=== PATIENT | male | born 1980 | race Caucasian/White ===

== ENCOUNTER → 2018-06-18 | Outpatient (CLI) | payer OTHER | LOC: BMCIMAGING 13:55 | PROVIDERS: ATTEND Nurse Practitioner Family | DX: R05 Cough (principal) ==

== ENCOUNTER → 2018-09-15 | Outpatient (CLI) | payer OTHER | LOC: FIMAGING 09:42 | PROVIDERS: ATTEND Surgery | DX: Z01.818 Encounter for other preprocedural examination (principal); C43.71 Malignant melanoma of right lower limb, including hip | CPT/HCPCS: 78195; A9520 ==

== ENCOUNTER → 2018-10-14 | Outpatient (CLI) | payer OTHER ==
[~2018-10-14] MED LIST: GADOBUTROL 10 ML VIAL IVP ONE
== END ==
LOC: FIMAGING 09:49
PROVIDERS: ATTEND Internal Medicine Hematology & Oncology
DX: C43.71 Malignant melanoma of right lower limb, including hip (principal)
CPT/HCPCS: A9585

== ENCOUNTER → 2018-10-23 | Outpatient (CLI) | payer OTHER ==
[~2018-10-23] MED LIST changes: -GADOBUTROL 10 ML VIAL IVP ONE; +LIDOCAINE 1% 300 MG/30 ML SDV ONE
== END ==
LOC: FIMAGING 08:02
PROVIDERS: ATTEND Surgery
PROC: 0H9HX0Z Drainage of Right Upper Leg Skin with Drainage Device, External Approach (ICD-10-PCS; principal; 2018-10-23)
DX: L76.32 Postprocedural hematoma of skin and subcutaneous tissue following other procedure (principal)

== ENCOUNTER 2018-12-21 17:22 | Inpatient (IN) | payer OTHER | END 2018-12-23 13:25 | disposition home or self-care (01) | LOC: F1N 17:22 ==